=== PATIENT | male | born 1960 | race Caucasian/White ===

== ENCOUNTER 2016-08-11 16:56 | Inpatient (IN) | payer OTHER ==
--- NOTE | ~2016-08-11 | HP ---
Unit #: [id number] #: [id number] Patient: MICHAEL PAREDES [id number] [place] [address] [id number] I MR#: [id number] NAME: MICHAEL PAREDES ROOM: [facility] Age: 55 Sex: M Admission Date: 08/11/2016 : 1960 Attending Physician: Jaquan Jaramillo M.D. Admitting Physician: Jaquan Jaramillo M.D. Primary Care Physician: Generic Doctor Not In System HISTORY AND PHYSICAL HISTORY OF PRESENT ILLNESS Michael is a 55 year old admitted to [facility] with depression and increased anxiety. PAST MEDICAL HISTORY 1. Obesity. 2. High blood pressure. PAST SURGICAL HISTORY Shoulder. ALLERGIES No known drug allergies. SOCIAL HISTORY He does not smoke. Drinks alcohol on occasion. Admits to using marijuana on occasion. FAMILY HISTORY Medically noncontributory. REVIEW OF SYSTEMS CONSTITUTIONAL: No fever or chills. HEENT: Denies any sore throat, ear pain or runny nose. CARDIOVASCULAR: Denies chest pain, irregular heart rhythm or palpitations. CHEST: Denies shortness of breath or cough. No hemoptysis. GASTROINTESTINAL: Denies nausea, vomiting, diarrhea or chronic constipation. ENDOCRINE: Denies history of increased thirst or urination. No recent significant weight loss or gain. GENITOURINARY: Denies dysuria, frequency, or hematuria. SKIN: Denies any rashes. HEMATOLOGIC: Denies history of increased bleeding or bruising. MUSCULOSKELETAL: Denies any hot, swollen joints. No generalized muscle pain. NEUROLOGIC: Denies problems with vision or speech. No frequent, severe headaches. No numbness, tingling or weakness in any extremities. Denies loss of bladder or bowel control. CURRENT MEDICATIONS 1. Milk of Magnesia p.r.n. 2. Maalox p.r.n. 3. Tylenol p.r.n. Unit #: [id number] #: [id number] Patient: MICHAEL PAREDES 4. Desyrel 100 mg q.h.s. 5. Thorazine 100 mg q.h.s. 6. Lopressor 100 mg b.i.d. 7. Catapres 0.1 mg t.i.d. 8. Depakote 250 mg t.i.d. 9. Thorazine 50 mg daily. 10. Paxil 30 mg daily. PHYSICAL EXAMINATION GENERAL: Alert, well-nourished, in no apparent distress. VITAL SIGNS: Blood pressure 144/100, heart rate 54, respirations 16, temperature 98.6. WEIGHT: 221. HEIGHT: 6 feet 1 inch. SKIN: Warm and dry without rash or lesion. HEENT: Normocephalic. TMs not viewed. Oral and nasal passages clear. Conjunctivae clear. PERRLA. EOMs intact. NECK: Supple without lymphadenopathy or thyromegaly. HEART: Regular rate and rhythm without murmur. LUNGS: Clear. ABDOMEN: Soft, nontender. : Not done. EXTREMITIES: No evidence of cyanosis, clubbing or edema. Moves all without focal deficit. NEUROLOGICAL: Grossly within normal limits. Cranial Nerves: II: Visual robertson are intact. III, IV AND : Extraocular movements are intact. Pupils are equal, round and reactive to light. V: Facial sensation is grossly normal. VII: Facial movements and expression are normal. VIII: Auditory acuity grossly intact. IX, X: Uvula is midline. Phonation is normal. XI: Patient shrugs shoulders and turns head normally. XII: Tongue protrudes in the midline. Sensory and Motor Function: Sensory and motor sensation is grossly normal. Motor: moves all extremities well. Coordination: Gait is normal. Deep Tendon Reflexes: Intact. IMPRESSION Psychiatric admission. RECOMMENDATIONS PSYCHIATRIC: Per psychiatrist. MEDICAL: See no contraindications to participate in facility's activities. MEDICAL PROGNOSIS Good. MEDICAL CONDITION Stable. Dictated by... Stephenie Rodríguez PNajmaANajma-[place]. for Jorge Ha/nakia Unit #: [id number] #: [id number] Patient: MICHAEL PAREDES TD: 08/12/2016 19:31 JOB #: [id number] HISTORY AND PHYSICAL Page 1 of 1 X Stephenie Rodríguez HISTORY AND PHYSICAL
--- NOTE | ~2016-08-11 | PA ---
Unit #: [id number] #: [id number] Patient: SOTERO PAREDES [id number] [facility] [address] [place] [address] [id number] MR#: [id number] NAME: SOTERO PAREDES ROOM: [facility] Age: 55 Sex: M Admission Date: 08/11/2016 : 1960 Date of Assessment: 08/12/2016 Attending Physician: Jaquan Jaramillo M.D. Admitting Physician: Jaquan Jaramillo M.D. Primary Care Physician: Generic Doctor Not In System PSYCHIATRIC ASSESSMENT DATE OF SERVICE 08/12/2016. IDENTIFYING DATA Mr. Paredes is a 55-year-old white male, who is a resident of [place], [place], and was self-referred to the hospital on a voluntary basis. CHIEF COMPLAINT "I've been really depressed. I'm having anxiety attacks and panic attacks." HISTORY OF PRESENT ILLNESS Mr. Paredes is a 55-year-old white male with history of mood disorder, who was self-referred to the hospital reporting increasing depression, anxiety, and panic and "I'm having tremors and I'm just at my end. I'm on medication from the psychiatrist on several different medications, I'm still anxious, I'm still depressed and I've thoughts of suicide. I'm done trying taking all of these pills and I'm shaking right now. I can't stop this nor really I got laid off a week ago from my job and I think it was because I was having panic attacks. When I get up in the morning, it is like going to your first job you ever had that is why I feel all the time so nervous. I can't sleep if I do try to go to sleep and doctors got me on medication for my sleep. Lately, I've been waking up at 1 and up till 4 or 5 in morning. I worry about everything and I have no control over, I'm wide eyed and I take one of the sleeping pills and it is the only way to go to sleep and my mind is constantly running with things. I've no control or has anything to do with my life. Panic attacks for me, it is like going to school for the first time and feels like that I can't go through that day other than trembling all day. I want to lie around all day and I don't want to do anything. Usually, I'm outgoing and I want to do things. Lately, I just want to lie in bed, my mind is awake, and I can't get it to shut down and I'm tired." The patient does report increasing depression, anxiety, irritability, feelings of hopelessness and helplessness and as such, recommendation for inpatient level of care for safety and stabilization was made. SUBSTANCE ABUSE HISTORY The patient reports history of alcohol and cannabis abuse, and has been drinking two 24-ounce beers a day. PAST PSYCHIATRIC HISTORY The patient has had history of outpatient psychiatric treatment in the Unit #: [id number] #: [id number] Patient: SOTERO PAREDES past. Review of the medical records indicate that currently he is supposed to be on Thorazine, Depakote, trazodone, and Paxil, though it is not clear if he has been compliant with medications. PAST MEDICAL HISTORY The patient's medical history is significant for hypertension, migraine headaches, arthritis, degenerative disk disease. ALLERGIES No known medication allergies. PERSONAL AND SOCIAL HISTORY A 55-year-old white male, who reports that he is and lives at home with his and son and his daughter, his granddaughter and grandson, and reports fairly decent social support system. MENTAL STATUS EXAMINATION Middle-aged white male who was casually dressed with fair personal hygiene, appears to be in no acute distress or discomfort. He was awake and alert on interaction with intact orientation to time, place, and person. His mood was anxious and depressed with a congruent affect. His speech was slow and restricted in content. His thought processes were disorganized with some looseness of associations and flight of ideas and suicidal ideations. His insight and judgment remain significantly impaired. DIAGNOSTIC IMPRESSION Psychiatric: Major depressive disorder, recurrent, moderate, without psychotic features; alcohol abuse, moderate; cannabis abuse, moderate. Medical: Hypertension, migraine headaches, arthritis, degenerative disk disease. Stressors: Moderate psychosocial stressors. TREATMENT PLAN 1. The patient has presented with history of mood disorder, and has been decompensating and will need inpatient hospitalization for safety and stabilization. We will start him back on his home medications. We will adjust the medications and monitor response. 2. Safe, structured, and nourishing environment will be provided. ESTIMATED LENGTH OF STAY 5 to 7 days. ABILITY TO HELP SELF Limited. WILLINGNESS TO HELP SELF The patient appears to be willing to help self. STRENGTHS 1. Communicative. 2. Cooperative. PROBLEMS 1. Chronic dysphoric symptoms. 2. Poor social support system. DISCHARGE CRITERIA This will be contingent upon the patient's ability to show resolution of Unit #: [id number] #: [id number] Patient: SOTERO PAREDES his depression and anxiety as well as his ability to stay safe to himself, particularly after discharge from the hospital. Dictated by... Jaquan Jaramillo M.D. ENRICO/andrea TD: 08/12/2016 06:59 JOB #: [id number] PSYCHIATRIC ASSESSMENT Page 1 of 1 X Jaquan Jaramillo MD PSYCHIATRIC ASSESSMENT
--- NOTE | ~2016-08-11 | PN ---
Unit #: [id number] #: [id number] Patient: SOTERO PAREDES [id number] [facility] [address] [place] [address] [id number] I MR#: [id number] NAME: SOTERO PAREDES ROOM: [facility] Age: 55 Sex: M Admission Date: 08/11/2016 : 1960 Attending Physician: Jaquan Jaramillo M.D. Admitting Physician: Jaquan Jaramillo M.D. Primary Care Physician: Generic Doctor Not In System [facility] PROGRESS NOTES DATE 08/15/2016 DISCUSSION Mr. Paredes is a 55-year-old, white male who was seen today and chart was reviewed and case was discussed with the staff. He appears to be doing better and appears to be coming out of the detox without any complications. Has been taking medications and tolerating them fairly well. MENTAL STATUS EXAM Middle-aged white male who was casually dressed with fair personal hygiene, appears to be in no acute distress or discomfort. He was awake and alert on interaction with intact orientation. His mood was anxious with congruent affect. He denies any suicidal or homicidal ideation. His insight and judgement remains slightly impaired. TREATMENT PLAN We will continue him on his current treatment protocol. We will monitor his response to the medication and make further adjustments as needed. Dictated by... Jorge Haynes/sukhi TD: 08/18/2016 00:17 JOB #: [id number] [facility] PROGRESS NOTES Page 1 of 1 X Jaquan Jaramillo MD X PROGRESS NOTE
--- NOTE | ~2016-08-11 | DS ---
Unit #: [id number] #: [id number] [facility]: [facility] [id number] [facility] [address] [place] [address] [id number] I MR#: [id number] NAME: SOTERO PAREDES ROOM: [facility] Age: 55 Sex: M Admission Date: 08/11/2016 : 1960 Discharge Date: 08/16/2016 Attending Physician: Jaquan Jaramillo M.D. Primary Care Physician: Generic Doctor Not In System DISCHARGE SUMMARY IDENTIFYING DATA Mr. Paredes is a 55-year-old, , white male, who is a resident of [place], [place], and was self-referred to the hospital on a voluntary basis. DISCHARGE DIAGNOSES Psychiatric: Major depressive disorder, recurrent, moderate, without psychotic features; alcohol abuse, moderate; cannabis abuse, moderate. Medical: Hypertension, migraine headaches, arthritis, degenerative disk disease. Stressors: Moderate psychosocial stressors. HISTORY OF PRESENT ILLNESS Please see initial psychiatric evaluation for details. PAST PSYCHIATRIC HISTORY Please see initial psychiatric evaluation for details. PAST MEDICAL HISTORY Please see initial psychiatric evaluation for details. HOSPITAL COURSE The [facility] and was oriented to the hospital environment. Routine p.r.n. medications were initiated, and he was started back on his home medications and alcohol detox protocol was initiated and he was closely monitored. He was seen to be doing fairly well and was calm and cooperative and was able to go through treatment without any complications and was denying any suicidal ideations, intent, or plan and was not seen to be a danger to self or anyone else and was wanting to go home and was willing to continue treatment on an outpatient basis and was not meeting criteria for inpatient psychiatric hospitalizations and as such, it was decided that he will be discharged home and will continue treatment on an outpatient basis. DISCHARGE MEDICATIONS Depakote 250 mg t.i.d. for mood disorder, Catapres 0.1 mg t.i.d. for hypertension, Lopressor 50 mg b.i.d. for hypertension. DISCHARGE CONDITION Stable. Unit #: [id number] #: [id number] Patient: SOTERO PAREDES PROGNOSIS Fair. Dictated by... Jaquan Jaramillo M.D. IAA/modl TD: 08/16/2016 06:33 JOB #: [id number] DISCHARGE SUMMARY Page 1 of 1 X Jaquan Jaramillo MD DISCHARGE SUMMARY
--- NOTE | ~2016-08-11 | PN ---
Unit #: [id number] #: [id number] Patient: SOTERO PAREDES [id number] [facility] [address] [place] [address] [id number] I MR#: [id number] NAME: SOTERO PAREDES ROOM: [facility] Age: 55 Sex: M Admission Date: 08/11/2016 : 1960 Attending Physician: Jaquan Jaramillo M.D. Admitting Physician: Jaquan Jaramillo M.D. Primary Care Physician: Rahel Doctor Not In System [facility] PROGRESS NOTES DATE 08/13/2016 DISCUSSION Mr. Paredes is a 55-year-old, white male who was seen today and chart was reviewed and case was discussed with the staff. He has been anxious, withdrawn, depressed and seclusive to himself. He reports not feeling much better. Meanwhile, he has been compliant with the treatment recommendations. He has been taking the medication and tolerating them fairly well with no reported side effects. MENTAL STATUS EXAM Middle-aged white male who was casually dressed with fair personal hygiene, appears to be in no acute distress or discomfort. He was awake and alert on interaction with intact orientation. His mood was anxious and depressed with congruent affect. His speech was slow and goal directed. He denies any suicidal or homicidal ideation. Also, denies any auditory or visual hallucinations. His insight and judgement remains slightly impaired. TREATMENT PLAN 1. We will continue him on his current treatment protocol. We will monitor his response to the medication and make further adjustments as needed. 2. We will continue to follow up. Dictated by... Jorge Haynes/sukhi TD: 08/16/2016 01:58 JOB #: [id number] Unit #: [id number] #: [id number] Patient: SOTERO PAREDES PROGRESS NOTES Page 1 of 1 X Jaquan Jaramillo MD PROGRESS NOTE
--- NOTE | ~2016-08-11 | PN ---
Unit #: [id number] #: [id number] Patient: SOTERO PAREDES [id number] [facility] [address] [place] [address] [id number] I MR#: [id number] NAME: SOTERO PAREDES ROOM: [facility] Age: 55 Sex: M Admission Date: 08/11/2016 : 1960 Attending Physician: Jaquan Jaramillo M.D. Admitting Physician: Jaquan Jaramillo M.D. Primary Care Physician: Generic Doctor Not In System [facility] PROGRESS NOTES SUBJECTIVE The patient was seen today in my office. The chart reviewed. The patient does take current medications and deny any side effects to medication. The patient reported that he is struggling with the sleep. Reported hand tremor and shakes. Reported anxiety and irritability. The patient is back on the Depakote as he quit taking the Geodon, did not like it and is taking the Depakote now ER 250 mg t.i.d., Paxil 60 mg once a day, and clonidine 0.1 mg t.i.d. The patient reports he has been off work. Reported financial stress. Denied any active suicidal or homicidal thoughts. Denied any psychotic behavior. Vital signs; blood pressure 121/88, pulse is 68 per minute and regular, weight is 231 pounds, height is 6 feet. Discussed with the patient a trial of trazodone for sleep and he did agree with that. PLAN 1. A trial of trazodone 100 mg at bedtime. 2. Continue other medication. Return to clinic back in 1 month for followup visit. Prescription given today for the trazodone for 1-month supply with 1 additional refill. DIAGNOSTIC IMPRESSION AXIS I: 1. Major depression disorder, chronic, recurrent, moderate to severe, without any suicidal or homicidal thoughts or psychosis. 2. Panic disorder. 3. Generalized anxiety disorder. AXIS II: Deferred. AXIS III: No acute illness. AXIS IV: AXIS V: Dictated by... Radha Duke M.D. PAUL/andrea TD: 08/10/2016 22:24 JOB #: [id number] Unit #: [id number] #: [id number] Patient: SOTERO PAREDES PROGRESS NOTES Page 1 of 1 X Radha Duke MD PROGRESS NOTE
--- NOTE | ~2016-08-11 | PN ---
Unit #: [id number] #: [id number] Patient: SOTERO PAREDES [id number] [facility] [address] [place] [address] [id number] I MR#: [id number] NAME: SOTERO PAREDES ROOM: [facility] Age: 55 Sex: M Admission Date: 08/11/2016 : 1960 Attending Physician: Jaquan Jaramillo M.D. Admitting Physician: Jaquan Jaramillo M.D. Primary Care Physician: Generic Doctor Not In System [facility] PROGRESS NOTES DATE August 12, 2016 DISCUSSION Mr. Paredes is a 55-year-old white male, who was seen today and chart was reviewed and the case was discussed with the staff. He has been anxious, withdrawn, and rather seclusive to himself. Meanwhile, he has been cooperative with the treatment recommendations and he has been taking the medications and tolerating them fairly well with no reported side effects. MENTAL STATUS EXAMINATION Middle-aged white male, who was casually dressed with fair personal hygiene and appears to be in no acute distress or discomfort. He was awake and alert on interaction with intact orientation. His mood is anxious with a congruent affect. He reports having suicidal ideations, but denies any homicidal ideations. His insight and judgment remain slightly impaired. TREATMENT PLAN 1. We will continue him on his current medications and treatment protocol, and will monitor his response to the medications, and make further adjustments as needed. 2. We will continue to followup. Dictated by... Jorge Haynes/marielena TD: 08/13/2016 05:11 JOB #: [id number] Unit #: [id number] #: [id number] Patient: SOTERO PAREDES PROGRESS NOTES Page 1 of 1 X Jaquan Jaramillo MD X PROGRESS NOTE
--- NOTE | ~2016-08-11 | PN ---
Unit #: [id number] #: [id number] Patient: SOTERO PAREDES [id number] [facility] [address] [place] [address] [id number] I MR#: [id number] NAME: SOTERO PAREDES ROOM: [facility] Age: 55 Sex: M Admission Date: 08/11/2016 : 1960 Attending Physician: Jaquan Jaramillo M.D. Admitting Physician: Jaquan Jaramillo M.D. Primary Care Physician: Generic Doctor Not In System [facility] PROGRESS NOTES DATE August 14, 2016 DISCUSSION Mr. Paredes is a 55-year-old white male, who was seen today and chart was reviewed and the case was discussed with the staff. He was seen to be anxious, withdrawn, depressed, and rather seclusive to himself. Meanwhile, he has been cooperative with the treatment recommendations and he has been taking the medications and tolerating them fairly well. MENTAL STATUS EXAMINATION Middle-aged white male, who was casually dressed with fair personal hygiene and appears to be in no acute distress or discomfort. He was awake and alert on interaction with intact orientation. His mood is anxious with a congruent affect. He denies any suicidal or homicidal ideations. His insight and judgment remain slightly impaired. TREATMENT PLAN 1. We will continue him on his current medications and treatment protocol, and will monitor his response to the medications, and make further adjustments as needed. 2. We will continue to followup. Dictated by... Jorge Haynes/marielena TD: 08/16/2016 06:55 JOB #: [id number] Unit #: [id number] #: [id number] Patient: SOTREO PAREDES PROGRESS NOTES Page 1 of 1 X Jaquan Jaramillo MD X PROGRESS NOTE
[2016-08-12 10:22] LABS: URINE APPEARANCE CLEAR; URINE BILIRUBIN NEG (NEG); URINE BLOOD NEG (NEG); URINE COLOR YELLOW; URINE GLUCOSE NEG (NEG); URINE KETONE TRACE (NEG); URINE LEUKOCYTE ESTERASE NEG (NEG); URINE NITRATE NEG (NEG); URINE PROTEIN TRACE (NEG); URINE SPECIFIC GRAVITY 1.016 (1.003-1.035); URINE UROBILINOGEN 0.2 MG/DL (NEG)
[2016-08-12 10:31] LABS: AMPHETAMINE NEG (NEG); BARBITURATES NEG (NEG); BENZODIAZEPINES NEG (NEG); COCAINE NEG (NEG); MARIJUANA POS (NEG); OPIATES NEG (NEG); TRICYCLIC ANTIDEPRESSANTS POS (NEG); U METHADONE NEG (NEG)
[2016-08-12 12:50] LABS: BASOPHIL# 0.1 X10e3 (0-0.3); BASOPHIL% 0.9 % (0-2.5); EOSINOPHIL# 0.2 X10e3 (0-0.7); EOSINOPHIL% 2.7 % (0.0-7.0); HEMATOCRIT 45.8 % (38.0-50.0); HEMOGLOBIN 15.1 gm/dL (13.0-16.0); LYMPHOCYTE# 1.3 X10e3 (1.0-3.5); LYMPHOCYTE% 17.2 % (17.0-45.0); MEAN CELL VOLUME 94.7 FL (83-96); MEAN CORPUSCULAR HEMOGLOBIN 31.2 PG (28-34); MEAN PLATELET VOLUME 10.2 FL (6.5-11.5); MONOCYTE# 0.6 X10e3 (0-1.0); MONOCYTE% 8.7 % (3.0-12.0); NEUTROPHIL# 5.1 X10e3 (1.5-7.1); NEUTROPHIL% 70.5 % (40-75); PLATELET COUNT 165 X10e3 (140-420); RED BLOOD COUNT 4.83 X10e (3.90-5.60); WHITE BLOOD COUNT 7.3 X10e3 (4.0-10.5)
[2016-08-12 12:51] LABS: DIFF IND NO
[2016-08-12 12:58] LABS: ALBUMIN SERUM 3.6 g/dL (3.5-5.0); BILIRUBIN,TOTAL 0.6 mg/dL (0.2-2.0); BUN/CREATININE RATIO 13.33; CALCIUM SERUM 8.8 mg/dL (8.4-10.2); CREATININE SERUM 0.9 mg/dL (0.6-1.4); GLOM FILT RATE Estimated 96.5 mL/min (>60); POTASSIUM 3.7 mmol/L (3.5-5.1); PROTEIN TOTAL SERUM 6.3 g/dL (6.0-8.3)
== END 2016-08-16 10:10 | disposition home or self-care (01) | DRG 885 ==
LOC: P1E 19:24
PROVIDERS: Psychiatry & Neurology Psychiatry
PROC: HZ2ZZZZ Detoxification Services for Substance Abuse Treatment (ICD-10-PCS; principal; 2016-08-11)
DX: F33.1 Major depressive disorder, recurrent, moderate (principal); I10 Essential (primary) hypertension; F10.10 Alcohol abuse, uncomplicated; F12.10 Cannabis abuse, uncomplicated; G43.909 Migraine, unspecified, not intractable, without status migrainosus; M19.90 Unspecified osteoarthritis, unspecified site; E66.9 Obesity, unspecified
CPT/HCPCS: 80053; 80307; 81003; 85025